=== PATIENT | female | born 1985 ===

== ENCOUNTER 2017-09-05 12:32 | Emergency (ER) | payer OTHER ==
[2017-09-05 12:58] VITALS: BP 109/67; PULSE 70; RESP 18; TEMP 98.9; O2SAT 97
--- NOTE | 2017-09-05 13:33 | C.PDOC ---
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 Patient noticed some swelling and bruising to her left knee. She states her pain is localized and worse with movement. She denies head injury, LOC, deformity, extremity numbness/weakness. - HPI Time Seen by Provider: 09/05/17 13:12 Chief Complaint (Nursing): Trauma History Per: Patient History/Exam Limitations: no limitations Past Medical History Vital Signs: Last Vital Signs Temp 98.9 F 09/05/17 12:56 Pulse 70 09/05/17 12:56 Resp 18 09/05/17 12:56 BP 109/67 09/05/17 12:56 Pulse Ox 97 09/05/17 13:33 - [facility] Procedures [facility]THOLIN[facility] GL[facility] (03/02/14) - Social History Hx Tobacco Use: No Hx Alcohol Use: No Hx Substance Use: No - Immunization History Hx Tetanus Toxoid Vaccination: Yes Hx Influenza Vaccination: No Hx Pneumococcal Vaccination: No ED Course And Treatment O2 Sat by Pulse Oximetry: 97 (on RA) Pulse Ox Interpretation: Normal Disposition - Disposition Forms: compropago (Faroese) - Scribe Statement The provider has reviewed the documentation as recorded by the Scribe (Maricruz Miller) All medical record entries made by the Scribe were at my direction and personally dictated by me. I have reviewed the chart and agree that the record accurately reflects my personal performance of the history, physical exam, medical decision making, and the department course for this patient. I have also personally directed, reviewed, and agree with the discharge instructions and disposition.
--- NOTE | 2017-09-05 13:56 | C.PDOC ---
History Of Present Illness 32-year-old female presents to the ED for evaluation of left knee and left wrist pain after she sustained a mechanical fall prior to arrival. Patient noticed some bruising and abrasion to her left knee. She states her pain is localized and worse with movement. She denies head injury/LOC, deformity, extremity numbness/weakness. Ambulate to Ed for evaluation, not in any apparent distress. - HPI Time Seen by Provider: 09/05/17 13:12 Chief Complaint (Nursing): Trauma History Per: Patient History/Exam Limitations: no limitations Onset/Duration Of Symptoms: Hrs Additional History Per: Patient Past Medical History Reviewed: Historical Data, Nursing Documentation, Vital Signs Vital Signs: Last Vital Signs Temp 98.9 F 09/05/17 12:56 Pulse 70 09/05/17 12:56 Resp 18 09/05/17 12:56 BP 109/67 09/05/17 12:56 Pulse Ox 97 09/05/17 14:18 - Medical History PMH: No Chronic Diseases Surgical History: No Surg Hx - [facility] Procedures [facility] BARTHOLIN[facility] GLAND (03/02/14) Family History: States: Unknown Family Hx - Social History Hx Tobacco Use: No Hx Alcohol Use: No Hx Substance Use: No - Immunization History Hx Tetanus Toxoid Vaccination: Yes Hx Influenza Vaccination: No Hx Pneumococcal Vaccination: No Review Of Systems Musculoskeletal: Positive for: Other (left wrist pain, left knee pain ) Neurological: Negative for: Weakness, Numbness, Other (head injury, LOC ) Physical Exam - Physical Exam Appears: Well, Non-toxic, No Acute Distress Skin: Normal Color, Warm, Dry, Other (small hematoma and superficial abrasion over left patella ) Head: Atraumatic, Normacephalic Eye(s): bilateral: PERRL Nose: No Deformity Oral Mucosa: Moist Neck: Normal ROM, No Midline Cervical Tenderness, No Paracervical Tenderness, No Step Off Deformity, Supple Chest: Symmetrical, No Deformity, No Tenderness Cardiovascular: Rhythm Regular Respiratory: No Rales, No Rhonchi, No Stridor, No Wheezing Back: No Vertebral Tenderness, No Paraspinal Tenderness Extremity: Normal ROM (FAROM of B/L UEs and LEs. no defomrity, no neurovascular deficits.), Tenderness (over left patella and dorsal aspect of left wrist ), Capillary Refill (less than 2 seconds ), No Deformity, No Swelling Pulses: Left Radial: Normal, Right Radial: Normal Neurological/Psych: Oriented x3, Normal Speech, Normal Cognition, Normal Motor, Normal Sensation, Normal Reflexes Gait: Steady ED Course And Treatment O2 Sat by Pulse Oximetry: 97 (on RA) Pulse Ox Interpretation: Normal - Other Rad Left knee X-Ray: Interpreted by Me, Viewed By Me Interpretation: (-) fx or dislocation Left wrist X-Ray: Interpreted by Me, Viewed By Me Interpretation: (-) acute fx or dislocation Progress Note: Left wrist XR, Left knee XR ordered and reviewed. Tylenol PO administered. On re-evaluation, pt is afebrile, hemodynamicaly stable. Ambulatory in Ed with stable gait. Head: AT/NC. neck: Supple, (-) midline tenderness. Left knee; exam c/w mild contusion/hematoma to Left patella.FAROM, no neurovascular deficits. Left wirts: FAROM, no neurovascular deficits. neurologicaly intact. Imagings review (-) acute findings. Jhoan wrap applied to left knee and left wrist. pt advised. ref. to f/u with PMD, ortho in 2-3 days for re-eval. return to ED if any worsening or new changes. Disposition Counseled Patient/Family Regarding: Studies Performed, Diagnosis, Need For Followup, Rx Given - Disposition Referrals: [facility] at [facility] [Outside] Disposition: HOME/ ROUTINE Disposition Time: 13:35 Condition: STABLE Additional Instructions: RICE-rest, ice, compression, elevation Ibuprofen daily for pain Followup with Orthopedist in 2-3 days for re-evaluation. Return if any new changes. 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 - Scribe Statement The provider has reviewed the documentation as recorded by the Scribe (Maircruz Miller) All medical record entries made by the Scribe were at my direction and personally dictated by me. I have reviewed the chart and agree that the record accurately reflects my personal performance of the history, physical exam, medical decision making, and the department course for this patient. I have also personally directed, reviewed, and agree with the discharge instructions and disposition.
--- NOTE | 2017-09-05 14:17 | RAD ---
PROCEDURE: Left Wrist Radiographs. HISTORY: injury COMPARISON: None. FINDINGS: BONES: No acute fracture. JOINTS: Unremarkable. SOFT TISSUES: Normal. OTHER FINDINGS: None. IMPRESSION: No demonstrated fracture or dislocation.
--- NOTE | 2017-09-05 14:19 | RAD ---
PROCEDURE: Left Knee Radiographs. HISTORY: Pain. COMPARISON: None. FINDINGS: BONES: No acute fracture. JOINTS: Unremarkable. JOINT EFFUSION: None. OTHER FINDINGS: None. IMPRESSION: No demonstrated fracture or dislocation.
== END 2017-09-05 14:39 | disposition home or self-care (01) ==
LOC: C.ER 12:32
DX: S83.92XA Sprain of unspecified site of left knee, initial encounter (principal); S63.502A Unspecified sprain of left wrist, initial encounter; W19.XXXA Unspecified fall, initial encounter

== ENCOUNTER 2018-04-24 12:14 | Outpatient (CLI) | payer OTHER | END 2018-04-24 12:15 | disposition home or self-care (01) | LOC: C.PAT 12:14 | DX: M67.432 Ganglion, left wrist (principal) ==

== ENCOUNTER 2018-05-21 09:40 | Day surgery (SDC) | payer OTHER ==
[2018-04-24 12:31] VITALS: BMI 26.0
[2018-05-21 10:33] VITALS: RESP 18
[2018-05-21] MEDS ORDERED: Lidocaine Hydrochloride 10 ML INJ ONE (11:35)
[2018-05-21] MEDS ORDERED: ceFAZolin 1 gm in NS 1 GM/100 ML BAG IVPB ONE (11:35)
[2018-05-21] MEDS ORDERED: Bupivacaine 0.25% 20 ML INJ IJ ONE (11:35)
[2018-05-21] MEDS ORDERED: Triamcinolone Acetonide 40 mg/mL Inj ONE (11:35)
[2018-05-21] MEDS ORDERED: Propofol 10 mg/ml Inj (20 ML) ONE (11:39)
[2018-05-21] MEDS ORDERED: Midazolam 2 MG/2 ML VIAL ONE (11:39)
--- NOTE | 2018-05-21 12:53 | PCM.SURG1 ---
Surgeon's Initial Post Op Note - Surgeon's Notes Surgeon: Dr. [place] Library Director: Dr. Holder PGY-4 Type of Anesthesia: General LMA, Local Pre-Operative Diagnosis: Left ganglion cyst, left carpal tunnel syndrome Operative Findings: Left ganglion cyst Post-Operative Diagnosis: Left ganglion cyst, left carpal tunnel syndrome Operation Performed: Excision of left ganglion cyst, injection of left carpal tunnel Specimen/Specimens Removed: left ganglion cyst Estimated Blood Loss: EBL {In ML}: 2 Blood Products Given: N/A Drains Used: No Drains Post-Op Condition: Good Date of Surgery/Procedure: 05/21/18 Time of Surgery/Procedure: 12:53
[2018-05-21] MEDS: HYDROmorphone 0.5 mg/0.5 ml ISec IVP PRN ×2 (13:02→13:18)
[2018-05-21 15:10] VITALS: BP 98/59; PULSE 54; TEMP 97.7; O2SAT 99
--- NOTE | 2018-05-22 09:15 | PCM.OP ---
Operative Report - Operative Report Date of Surgery/Procedure: 05/21/18 Time of Surgery/Procedure: 11:30 Surgeon: Vane Zapata MD Soaping Machine Back Tender: Lara Holder DO Anesthesia/Sedation: General Pre-Operative Diagnosis: Left wrist dorsal ganglion, Left carpal tunnel syndrome Post-Operative Diagnosis: : Left wrist dorsal ganglion; Left carpal tunnel syndrome Indication for Surgery: 33 yo F with L wrist ganglion cyst and mild clinical carpal tunnel syndrome. Treatment options reviewed. Due to discomfort caused by the cyst, the patient opted for surgical excision. In regards to the carpal tunnel syndrome, because symptoms are mild, she would like to try an injection. Patient advised me of the contraceptive implant in her arm, so only a forearm tourniquet will be used. Risks of surgery including infection, pain, scarring, swelling, adhesions, stiffness, recurrence of the cyst, damage to surrounding structures, and need for future procedures reviewed. Post operative pain plan and risks of narcotics reviewed. Operative Findings: Left wrist dorsal ganglion Procedure/Operation Description: The patient was identified in the holding area. Her left hand was marked. She was brought into the operating room. The patient was laid supine on the operating room table, and was given LMA anesthesia. The patient was administered 1 gram Ancef. The left arm was then placed in a forearm tourniquet and prepped and draped in a usual sterile fashion. First, the carpal tunnel was injected with a mixture of 0.4 mL of Kenalog and 0.6 mL of 1% lidocaine. Using an Esmarch, the arm was exsanguinated and tourniquet inflated to 250 mm of pressure for 22 minutes. Next, attention was paid to the dorsal ganglion. A 2-cm longitudinal incision through the skin and dermis was made directly over the cyst. The subcutaneous tissue was bluntly dissected. No sensory nerves were identified in the field. About 3 mm of the extensor retinaculum was longitudinally incised in order to free the cyst from the surrounding tissues. Using blunt dissection, the stalk of the cyst was traced to its origin where it was incised with the use of bipolar cautery. The cyst was sent to pathology.The extensor tendons were protected throughout the procedure. The tissues and were irrigated with saline. One 3.0 Vicryl suture was used to close the retinculum. The tourniquet was deflated and hemostasis was confirmed. The dermis was closed with 3.0 monocryl , followed by skin closure with 4.0 monocryl in a subcuticular fashion. Skin glue was placed over the incision. Five mL of 1% lidocaine was injected around the incision. A sterile dressing was applied and the patient was then placed in a volar splint. The patient tolerated the procedure well, was transferred to a stretcher, and brought to recovery in stable condition. Estimated Blood Loss: negligible Complications: None Discharge & Condition: Stable to home
== END 2018-05-21 15:21 | disposition home or self-care (01) ==
LOC: C.SDS 09:40
PROVIDERS: ATTEND Dentist Pediatric Dentistry
DX: M67.432 Ganglion, left wrist (principal); G56.02 Carpal tunnel syndrome, left upper limb
CPT/HCPCS: 20526; 25111; 88304; J0690; J1100; J1170; J2001; J2250; J2405; J2704; J3010; J3301